=== PATIENT | female | born 1975 | race Caucasian/White ===

== ENCOUNTER 2018-06-14 13:04 | Emergency (ER) | payer OTHER ==
[~2018-06-14] VITALS: Ht 170.2 cm; Wt 90.7 kg
[2018-06-14] MEDS ORDERED: ALLEGRA ALLERGY60 MG PO (13:43)
[2018-06-14] MEDS ORDERED: VENTOLIN HFA18 GM INH (15:29)
== END 2018-06-14 15:31 | disposition home or self-care (01) ==
LOC: ED 13:04
DX: R09.1 Pleurisy (principal); J45.909 Unspecified asthma, uncomplicated; F17.200 Nicotine dependence, unspecified, uncomplicated; Z79.899 Other long term (current) drug therapy
CPT/HCPCS: 36415; 71045; 85379; 94640; 99285-25; 99406